=== PATIENT | female | born 1990 | race African-American/Black ===

== ENCOUNTER 2020-09-05 14:33 | Emergency (ER) | payer OTHER ==
[~2020-09-05] VITALS: Ht 154.9 cm; Wt 68.0 kg
[~2020-09-05 14:33] MED LIST: MACROBID 100 M100 M1 PO
[2020-09-05 14:43] VITALS: BP 116/69
[2020-09-05] MEDS ORDERED: FLEXERIL PO (16:02)
[2020-09-05] MEDS ORDERED: IBUPROFEN 800800 MG PO (16:02)
[2020-09-05] MEDS ORDERED: TYLENOL325 M1 PO (16:02)
== END 2020-09-05 16:25 | disposition home or self-care (01) ==
LOC: ER 14:33
DX: S16.1XXA Strain of muscle, fascia and tendon at neck level, initial encounter (principal); S20.212A Contusion of left front wall of thorax, initial encounter; S50.12XA Contusion of left forearm, initial encounter; V47.5XXA Car driver injured in collision with fixed or stationary object in traffic accident, initial encounter; Y93.I9 Activity, other involving external motion; Y92.89 Other specified places as the place of occurrence of the external cause; Y99.8 Other external cause status